=== PATIENT | female | born 1970 | race Caucasian/White ===

== ENCOUNTER 2017-11-21 07:19 | Emergency (ER) | payer OTHER ==
[~2017-11-21] VITALS: Ht 172.7 cm; Wt 79.4 kg
[~2017-11-21 07:19] MED LIST: ACETAMINOPHEN-1 EAC1 ORAL; ALBUTEROL SULF8.5 GM INH; CELEXA20 MG ORAL; COLACE100 MG ORAL; NORCO 5-325 TA1 EACH ORAL; SPIRONOLACTONE1 EACH ORAL; TAMIFLU75 MG ORAL; TRAMADOL HCL50 MG ORAL
[2017-11-21] MEDS ORDERED: NKM (07:30)
--- NOTE | 2017-11-21 07:31 | Emergency Room Report ---
History of Present Illness General Chief Complaint: Allergic Reaction Source: Patient Present Illness HPI 47-year-old female presents with rash and itch to skin below bilateral eyes that occurred after she applied topical "natural" cream to area after she noticed redness below right eye 2 days ago. Denies ever having pain with extra ocular movement, fever/chills, injected conjunctiva, headache, neck pain/ stiffness. Doesnt wear contacts. Allergies: Coded Allergies: No Known Allergies (Unverified , 04/18/15) Patient History Past Medical History: HTN Past Surgical History: none Pertinent Family History: none Social History: Denies: smoking, alcohol use, drug use Now: No Immunizations: UTD Reviewed Nursing Documentation: PMH: Agreed; PSxH: Agreed Review of Systems All Other Systems: negative except mentioned in HPI Physical Exam Sp02 EP Interpretation: reviewed, normal General Appearance: normal inspection, well appearing, no apparent distress, alert, GCS 15, non-toxic Head: normocephalic, atraumatic Eyes: bilateral eye PERRL, bilateral eye EOMI ENT: normal ENT inspection, hearing grossly normal, normal pharynx, no angioedema, normal voice, TMs + canals normal, uvula midline, moist mucus membranes Neck: normal inspection, full range of motion, supple, thyroid normal, no meningismus, no bony tend Respiratory: normal inspection, lungs clear, normal breath sounds, no rhonchi, no respiratory distress, no retraction, no accessory muscle use, no wheezing, speaking full sentences Cardiovascular #1: regular rate, rhythm, no edema, no JVD, normal capillary refill Gastrointestinal: normal inspection, normal bowel sounds, non tender, soft, no mass, no peritonitis, non-distended, no guarding, no hernia, no pulsatile mass Genitourinary: no CVA tenderness Musculoskeletal: normal inspection, back normal, normal range of motion, no calf tenderness, pelvis stable, Selene's Sign negative Neurologic: normal inspection, alert, oriented x3, responsive, 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 No vesicles, no open wounds, no excoriations Lymphatic: normal inspection, no adenopathy Medical Decision Making Diagnostic Impression: Primary Impression: Allergic reaction Qualified Codes: T78.40XA - Allergy, unspecified, initial encounter ER Course VSS, afebrile Airway patent No systemic reaction Allergic reaction is very localized specifically to area where patient applied topical "natural" cream Was given PO benadryl and prednisone in ED Rx for same Advised to stop using this cream in future PMD followup for Derm referral if continues DC home Status: improved Disposition: HOME, SELF-CARE Scripts Prednisone* (PREDNISONE*) 20 Mg Tablet 40 MG ORAL DAILY for 3 Days, #6 TAB Prov: DERECK STEVENS M.D. 11/21/17 Diphenhydramine HCl (Benadryl) 25 Mg Capsule 25 MG PO TID for rash, itch for 7 Days, #20 CAP Prov: DERECK STEVENS M.D. 11/21/17 DERECK STEVENS M.D. Nov 21, 2017 07:31
[2017-11-21] MEDS ORDERED: BENADRYL25 M3 PO (07:45)
[2017-11-21] MEDS ORDERED: PREDNISONE20 MG ORAL (07:45)
[2017-11-21 07:54] VITALS: BP 136/72
== END 2017-11-21 07:55 | disposition home or self-care (01) ==
LOC: EMR 07:50
DX: T78.40XA Allergy, unspecified, initial encounter (principal); X58.XXXA Exposure to other specified factors, initial encounter; Y93.9 Activity, unspecified; Y92.9 Unspecified place or not applicable; I10 Essential (primary) hypertension
CPT/HCPCS: 99284; J7512

== ENCOUNTER 2018-09-23 11:56 | Emergency (ER) | payer OTHER ==
[~2018-09-23] VITALS: Ht 162.6 cm; Wt 79.4 kg
[~2018-09-23 11:56] MED LIST changes: +BENADRYL25 M3 PO; +NKM; +PREDNISONE20 MG ORAL
[2018-09-23 12:07] VITALS: BP 137/55
--- NOTE | 2018-09-23 12:10 | NUR ---
ED Nurse Note: PT WALKED IN TO ER TODAY FROM HOME. AOX4. PT C/O COUGH AND CONGESTION X 1 WEEK. PT DENIES FEVER. NO SIGNS OF RESPIRATORY DISTRESS OR RETRACTIONS NOTED. LUNG SOUNDS CLEAR IN ALL LOBES. NO COUGHING NOTED ON ASSESSMENT.
[2018-09-23] MEDS ORDERED: SUDAFED PE PRE1 EAC3 PO (12:29)
[2018-09-23] MEDS ORDERED: TESSALON PERLE100 MG ORAL (12:29)
--- NOTE | 2018-09-23 12:29 | Emergency Room Report ---
History of Present Illness General Chief Complaint: Upper Respiratory Illness Source: Patient Present Illness HPI 48-year-old female patient presents the ER complaining of cough and congestion for the past several days.Patient currently being seen in the ER with her daughter with similar symptoms. Denies fever at home. Reports coughing up sputum, denies hemoptysis. Denies recent travel. Denies smoking cigarettes. Denies chest pain or shortness of breath. Denies history of asthma or MD. Reports sick contacts at home. Denies sore throat, earache. Denies generalized muscle aches and pains. Reports has been taking Tylenol at home for relief of symptoms. Denies other aggravating or relieving factors. Allergies: Coded Allergies: No Known Allergies (Unverified , 04/18/15) Patient History Past Medical History: see triage record Last Menstrual Period: 6 months ago Reviewed Nursing Documentation: PMH: Agreed; PSxH: Agreed Nursing Documentation-PM Past Medical History: No Stated History Review of Systems All Other Systems: negative except mentioned in HPI Physical Exam Vital Signs Date Time Temp Pulse Resp B/P (MAP) Pulse Ox O2 Delivery O2 Flow Rate FiO2 09/23/18 12:07 98.2 16 137/55 99 Room Air 09/23/18 12:07 87 Sp02 EP Interpretation: reviewed, normal General Appearance: well appearing, no apparent distress, alert, GCS 15, non- toxic Head: normocephalic, atraumatic Eyes: bilateral eye normal inspection, bilateral eye PERRL ENT: hearing grossly normal, normal pharynx, no angioedema, normal voice, TMs + canals normal, uvula midline, moist mucus membranes Neck: full range of motion, no meningismus, no bony tend Respiratory: lungs clear, normal breath sounds, no rhonchi, no respiratory distress, no accessory muscle use, no wheezing, speaking full sentences Cardiovascular #1: regular rate, rhythm, no edema Gastrointestinal: non tender, soft, no mass, non-distended, no guarding, no rebound Genitourinary: no CVA tenderness Neurologic: alert, oriented x3, responsive, motor strength/tone normal, sensory intact Psychiatric: mood/affect normal Skin: no rash Medical Decision Making PA Attestation Dr. Villa is my supervising Physician whom patient management has been discussed with. Diagnostic Impression: Primary Impression: Upper respiratory infection ER Course Pt presents to ED c/o cough and congestion. DDX considered but are not limited to influenza, viral URI, pneumonia, strep throat, rhinitis, sinusitis, otitis media, otitis externa. VITAL SIGNS are WNL, patient is afebrile. ER COURSE: Lungs clear to auscultation, no wheezes, rhonci or rales. patient afebrile. Low suspicion for pneumonia, will not order CXR at this time. no tonsillar exudates, no pharyngeal erythema, history of cough, no fever, no stridor, uvula midline, low suspicion for peritonsillar abscess. Likely viral etiology of symptoms. Symptomatic treatment. drink plenty of fluids. Salt water gargles for sore throat. Followup with PCP for further treatment and/or referral as needed. ER precautions given. DISCHARGE: At this time pt is stable for d/c to home. Patient is resting comfortably, in no acute distress, nontoxic appearing. Patient to take medications as instructed Will provide with patient care instructions and any necessary prescriptions. Care plan and follow-up instructions provided. Patient instructed to follow-up with primary care provider in 3 - 5 days. Patient questions asked and answered. Patient reports understanding and agreement to treatment plan. ER precautions given. Patient instructed to return to ER immediately for any new or worsening of symptoms including but not limited to increasing SOB, persistent fever, intractable vomiting. - Please note that this Emergency Department Report was dictated using [employer] Gamespharmacist technician technology software, occasionally this can lead to erroneous entry secondary to interpretation by the dictation equipment. Last Vital Signs Date Time Temp Pulse Resp B/P (MAP) Pulse Ox O2 Delivery O2 Flow Rate FiO2 09/23/18 12:17 84 16 Room Air 09/23/18 12:07 98.2 137/55 99 Disposition: HOME, SELF-CARE Condition: Stable Scripts Benzonatate* (TESSALON PERLE*) 100 Mg Capsule 100 MG ORAL THREE TIMES A DAY, #20 PERLE Prov: Campbell Marks.Luke 09/23/18 Guaifen/Phenyleph/Acetaminophn (Sudafed PE Pressure+Pain+Mucus) 1 Each Tablet 1 EACH PO TID, #24 TAB Prov: Campbell Marks.Luke 09/23/18 Referrals: [facility] (PCP) Patient Instructions: Upper Respiratory Infection, Adult Additional Instructions: Followup with primary care provider in 3 -5 days. Take medications as directed. Patient questions asked and answered. ER precautions given, patient instructed to return to ER immediately for any new or worsening of symptoms. Campbell Marks Sep 23, 2018 12:29
[2018-09-23 13:16] VITALS: BP 132/66
--- NOTE | 2018-09-23 13:17 | NUR ---
ED Nurse Note: PT LAYING PEACEFULLY IN BED IN NAD. AOX4. PRESCRIPTIONS AND DISCHARGE PAPERWORK EXPLAINED TO PT. PT VERBALIZES UNDERSTANDING AND ALL QUESTIONS ANSWERED. PRESCRIPTIONS AND DISCHARGE PAPERWORK GIVEN TO PT AND ID WRISTBAND REMOVED. PT WALKED OUT OF ER WITH STEADY GAIT AND ALL BELONGINGS.
== END 2018-09-23 13:17 | disposition home or self-care (01) ==
LOC: EMR 12:21
DX: J06.9 Acute upper respiratory infection, unspecified (principal)
CPT/HCPCS: 99282

== ENCOUNTER 2018-12-20 20:29 | Emergency (ER) | payer OTHER ==
[~2018-12-20] VITALS: Ht 172.7 cm; Wt 77.1 kg
[~2018-12-20 20:29] MED LIST changes: +SUDAFED PE PRE1 EAC3 PO; +TESSALON PERLE100 MG ORAL
[2018-12-20 20:35] VITALS: BP 156/80
--- NOTE | 2018-12-20 20:35 | NUR ---
ED Nurse Note: Pt arrived ED from home. C/o skin rashes on her right side of face and neck for unknown reasons. Pt is A/O X4. Vital signs stable at this time, waiting for orders.
[2018-12-20] MEDS ORDERED: VALACYCLOVIR500 MG ORAL (21:11)
[2018-12-20] MEDS ORDERED: GABAPENTIN300 MG ORAL (21:11)
--- NOTE | 2018-12-20 21:12 | Emergency Room Report ---
History of Present Illness General Chief Complaint: Skin Rash/Abscess Source: Patient Present Illness HPI This is a 48-year-old female with history of recurrent herpes zoster. She presents with chief complaint of a rash on her right side of face. Started yesterday. Initially on her chin and now to cheek. Burning sensation. Radiate her scalp. No nausea no vomiting. No fever chills. [id number] medication not helping. Denies any other complaint. Nothing made it better. Nothing made it worse. Allergies: Coded Allergies: No Known Allergies (Unverified , 04/18/15) Patient History Past Medical History: see triage record, old chart reviewed Past Surgical History: none Pertinent Family History: none Social History: Denies: smoking Last Menstrual Period: 2018 Now: No Immunizations: other Reviewed Nursing Documentation: PMH: Agreed; PSxH: Agreed Nursing Documentation-PMH Past Medical History: No Stated History Review of Systems Eye: Denies: eye pain, blurred vision ENT: Denies: ear pain, nose congestion, throat swelling Respiratory: Denies: cough, shortness of breath Cardiovascular: Denies: chest pain, palpitations Gastrointestinal: Denies: abdominal pain, diarrhea, nausea, vomiting Musculoskeletal: Denies: back pain, joint pain Skin: Reports: rash Neurological: Denies: headache, numbness Endocrine: Denies: increased thirst, increased urine Hematologic/Lymphatic: Denies: easy bruising All Other Systems: negative except mentioned in HPI Physical Exam Vital Signs Date Time Temp Pulse Resp B/P (MAP) Pulse Ox O2 Delivery O2 Flow Rate FiO2 12/20/18 20:29 98.8 85 18 98 Room Air 12/20/18 20:35 156/80 vitals with high blood pressure Sp02 EP Interpretation: reviewed, normal General Appearance: well appearing, no apparent distress, alert Head: normocephalic, atraumatic Eyes: bilateral eye PERRL, bilateral eye EOMI ENT: hearing grossly normal, normal pharynx Neck: full range of motion, supple, no meningismus Respiratory: chest non-tender, lungs clear, normal breath sounds Cardiovascular #1: regular rate, rhythm, no murmur Gastrointestinal: normal bowel sounds, non tender, no mass, no organomegaly, no bruit, non-distended Musculoskeletal: back normal, gait/station normal, normal range of motion Neurologic: alert, oriented x3 Psychiatric: mood/affect normal Skin: warm/dry, rash - This is a rash on right cheek and chin. Medical Decision Making Diagnostic Impression: Primary Impression: Herpes zoster Qualified Codes: B02.9 - Zoster without complications ER Course Patient with recurrent herpetic zoster. No evidence of eye involvement. We'll discharge home with Valtrex. Last Vital Signs Date Time Temp Pulse Resp B/P (MAP) Pulse Ox O2 Delivery O2 Flow Rate FiO2 12/20/18 20:35 98.6 81 18 156/80 98 Room Air Status: unchanged Disposition: HOME, SELF-CARE Condition: Stable Scripts Gabapentin* (GABAPENTIN*) 300 Mg Capsule 300 MG ORAL THREE TIMES A DAY, #21 CAP 0 Refills Prov: Malachi Cates MD 12/20/18 Valacyclovir Hcl* (VALTREX*) 500 Mg Tablet 1000 MG ORAL TID, #21 TAB Prov: Malachi Cates MD 12/20/18 Referrals: [facility] (PCP) Additional Instructions: Follow-up with your doctor in 7 days. Return if symptom worsen. Malachi Cates MD December 20, 2018 21:12
[2018-12-20 21:16] VITALS: BP 145/7
--- NOTE | 2018-12-20 21:16 | NUR ---
ER DISCHARGE NOTE: Patient is cleared to be discharged per ERMD. Pt is aox4 on room air with stable vital signs. Pt was given dc and prescription instructions and was able to verbalize understanding. Pt's ID band removed. Pt is able to ambulate with steady gait and took all belongings.
== END 2018-12-20 21:16 | disposition home or self-care (01) ==
LOC: EMR 21:02
DX: B02.9 Zoster without complications (principal)
CPT/HCPCS: 99282